=== PATIENT | male | born 1985 | race Two or more races ===

== ENCOUNTER 2022-08-04 19:23 | Emergency (ER) | payer OTHER ==
[2022-08-04 19:54] LABS: BASOPHILS # (AUTO) 0.1 10^3/uL (0.0-0.1); BASOPHILS % (AUTO) 0.8 %; EOSINOPHILS # (AUTO) 0.1 10^3/uL (0.0-0.7); EOSINOPHILS % (AUTO) 2.2 %; HCT - HEMATOCRIT 42.7 % (42.0-52.0); HGB - HEMOGLOBIN 14.5 g/dL (14.0-18.0); LYMPHOCYTES # (AUTO) 1.5 10^3/uL (1.5-3.5); LYMPHOCYTES % (AUTO) 24.2 %; MEAN CORPUSCULAR HEMOGLOBIN 31.3 pg (27.0-31.0); MEAN PLATELET VOLUME 9.5 fL (7.4-11.4); MONOCYTES # (AUTO) 0.7 10^3/uL (0.0-1.0); MONOCYTES % (AUTO) 10.8 %; NEUTROPHILS # (AUTO) 3.9 10^3/uL (1.5-6.6); NEUTROPHILS % (AUTO) 61.8 %; PLT - PLATELET COUNT 241 10^3/uL (130-450); RED BLOOD COUNT 4.64 10^6/uL (4.70-6.10); RED CELL DISTRIBUTION WIDTH 12.8 % (12.0-15.0); WHITE BLOOD COUNT 6.3 x10^3/uL (4.8-10.8)
--- NOTE | 2022-08-04 20:15 | ED Physician Documentation ---
History of Present Illness - Stated complaint Stated Complaint: DIARRHEA/BLOOD IN STOOL - Chief complaint Chief Complaint: Abd Pain - History obtained from History obtained from: Patient - Additonal information Additional information: 37-year-old man with history of hemorrhoids presents with rectal bleeding for the past several days. Patient states he has been having loose stools for about 5 days with intermittent abdominal cramping but denies nausea, fever, back pain, urinary symptoms. He does state that his doctor told him he has internal and external hemorrhoids. Review of Systems Constitutional: denies: Fever GI: reports: Diarrhea, Bloody / black stool. denies: Abdominal Pain, Nausea, Vomiting : denies: Dysuria PD PAST MEDICAL HISTORY - Past Medical History Past Medical History: Yes GI: Other - Past Surgical History Past Surgical History: No - Present Medications Home Medications: Ambulatory Orders Medication Instructions Recorded Confirmed Hydrocortisone Supp [Anusol-Hc] 25 mg IA QPM PRN #10 supp 08/04/22 - Allergies Allergies/Adverse Reactions: Allergies Allergy/AdvReac Type Severity Reaction Status Date / Time No Known Drug Allergies Allergy Verified 08/04/22 19:30 - Social History Does the pt smoke?: No Smoking Status: Never smoker Does the pt drink ETOH?: No Does the pt have substance abuse?: No - Immunizations Immunizations are current?: Yes - POLST Patient has POLST: No PD ED PE NORMAL - Vitals Vital signs reviewed: Yes - General General: Alert and oriented X 3, No acute distress, Well developed/nourished - HEENT HEENT: Atraumatic, PERRL, EOMI - Neck Neck: Supple, no meningeal sign - Cardiac Cardiac: RRR - Respiratory Respiratory: No respiratory distress, Clear bilaterally - Abdomen Abdomen: Non tender, Non distended - Rectal Rectal: Other (CB arzate. multiple nonthrombosed ext hemorrhoids with one hemorrhoid actively oozing blood.) Results - Vitals Vitals: Vital Signs - 24 hr 08/04/22 19:27 Temperature 36.6 C Heart Rate 75 Respiratory 16 Rate Blood Pressure 165/93 H O2 Saturation 100 Oxygen O2 Source Room air - Labs Labs: Laboratory Tests 08/04/22 19:44 WBC 6.3 RBC 4.64 L Hgb 14.5 Hct 42.7 MCV 92.0 MCH 31.3 H MCHC 34.0 RDW 12.8 Plt Count 241 MPV 9.5 Neut # (Auto) 3.9 Lymph # (Auto) 1.5 [place] # (Auto) 0.7 Eos # (Auto) 0.1 Baso # (Auto) 0.1 Absolute Nucleated RBC 0.00 Nucleated RBC % 0.0 PD Medical Decision Making - ED course ED course: 37-year-old man presented with bleeding hemorrhoids for the past 5 days. Hb normal. advised eating high fiber foods, drink lots of water, consider otc stool softener/laxative for constipation prevention. anusol rx sent to pharmacy. f/u pcp. return precautions given. Departure - Departure Disposition: Home, Self Care Clinical Impression: Hemorrhoids Condition: Good Instructions: ED Hemorrhoids Prescriptions: Hydrocortisone Supp [Anusol-Hc] 25 mg IA QPM PRN #10 supp PRN Reason: Pain 5-7 Comments: Prescription for Anusol was sent electronically to [facility] in [place]. Please follow-up with your primary care provider. Return to the emergency department for new or worsening symptoms or other concerns.
[2022-08-04 20:25] VITALS: BP 133/81
[2022-08-04 20:37] LABS: ALBUMIN 3.8 g/dL (3.2-5.5); ALBUMIN/GLOBULIN RATIO 1.2 (1.0-2.2); BILIRUBIN,TOTAL 1.1 mg/dL (0.2-1.0); CALCIUM 8.9 mg/dL (8.5-10.3); CREATININE 1.1 mg/dL (0.6-1.2); POTASSIUM 3.7 mmol/L (3.5-5.0); TOTAL PROTEIN 7.1 g/dL (6.7-8.2)
== END 2022-08-04 20:25 | disposition home or self-care (01) ==
LOC: ED 19:23
DX: K64.9 Unspecified hemorrhoids (principal)
CPT/HCPCS: 36415; 80053; 83690; 85025; 99283